=== PATIENT | male | born 1980 | race Caucasian/White ===

== ENCOUNTER 2019-08-16 11:42 | Inpatient (IN) | payer OTHER ==
[2019-08-16 13:57] LABS: EOS % 4.1 % (0-4.5); HEMATOCRIT 40.3 % (35.4-49); HEMOGLOBIN 13.3 GM/dL (11.7-16.9); LYMPH % 32.2 % (8-40); MCH 30.5 pg (25.7-33.7); MCHC 33.1 g/dl (32.0-35.9); MEAN CELL VOLUME 92.1 fl (80-96); MEAN PLT VOLUME 9.4 fl (7.5-11.1); MONO % 19.8 % (3.8-10.2); NEUT % 43.9 % (42.8-82.8); PLATELET COUNT 230 K/MM3 (134-434); RBC 4.37 M/mm3 (4.00-5.60); RDW 14.4 % (11.9-15.9); WHITE BLOOD COUNT 4.8 K/mm3 (4.0-10.0)
[2019-08-16 14:38] LABS: ALBUMIN 3.3 g/dl (3.4-5.0); ALK PHOS 73 U/L (45-117); ANION GAP 4 MMOL/L (8-16); BILIRUBIN,TOTAL 0.3 mg/dL (0.2-1); BLOOD UREA NITROGEN 14.4 mg/dL (7-18); CALCIUM 8.5 mg/dL (8.5-10.1); CHLORIDE 105 mmol/L (98-107); CO2 28 mmol/L (21-32); CREATININE 0.8 mg/dL (0.55-1.3); GLUCOSE,RANDOM 99 mg/dL (74-106); POTASSIUM 4.9 mmol/L (3.5-5.1); SGOT/AST 176 U/L (15-37); SGPT/ALT 211 U/L (13-61); SODIUM 137 mmol/L (136-145); TOT PROT 7.8 g/dl (6.4-8.2)
[2019-08-16 15:08] LABS: ERYTHROCYTE SEDIMENTATION RATE 16 mm/hr (0-10)
[2019-08-16 15:49] LABS: URINE APPEARANCE CLEAR; URINE BILIRUBIN NEGATIVE (NEGATIVE); URINE COLOR YELLOW; URINE GLUCOSE (UA) NEGATIVE (NEGATIVE); URINE KETONE NEGATIVE (NEGATIVE); URINE LEUK ESTERASE NEGATIVE (NEGATIVE); URINE NITRITE NEGATIVE (NEGATIVE); URINE PROTEIN NEGATIVE (NEGATIVE)
[2019-08-16] MEDS ORDERED: CEFTRIAXONE 1,000 MG in DEXTROSE 5%-WATER - 50 ML IVPB ONE (15:54)
[2019-08-16] MEDS ORDERED: VANCOMYCIN HCL 1,250 MG in DEXTROSE 5%-WATER - 250 ML IVPB ONE (15:54)
--- NOTE | 2019-08-16 16:04 | PDOC ---
Documentation entered by Kandace Carpio SCRIBE, acting as scribe for Deshawn Christopher MD. Deshawn Christopher MD: This documentation has been prepared by the Shirin venegas Adrianna, SCRIBE, under my direction and personally reviewed by me in its entirety. I confirm that the documentation accurately reflects all work, treatment, procedures, and medical decision making performed by me. History of Present Illness - General Chief Complaint: Chest Pain Stated Complaint: IRREGULAR HEART BEAT Time Seen by Provider: 08/16/19 12:07 - History of Present Illness Initial Comments: The patient is a 39 year old male, with a significant PMH of polysubstance abuse (heroin, cocaine, fentanyl- currently on methadone program), Hep C, and asthma, who presents to the ED from [facility] to rule out endocarditis. Patient notes he was checking into detox, and upon evaluation he was found to have a murmur so he was sent to the ED for further evaluation. He endorses a ESPARZA and left wrist drop, noting his entire hand feels paralyzed since he woke up at 5 am this morning. Patient also notes he has been experiencing fever, chills, and left upper back pain for the past 3-4 days. Off note, he was seen at [facility] on 08/09 where he was diagnosed with pneumonia and was told he had a lung nodule. Allergies: ciprofloxacin, ketorolac, penicillins, sulfa, trimethoprim Surgical History: None reported Social History: Polysubstance abuse (heroin, cocaine, fentanyl- currently on methadone program, last used yesterday). Everyday smoker. Daily EtOH use. PCP: Does not have one (is homeless) Past History - Past Medical History Allergies/Adverse Reactions: Allergies Allergy/AdvReac Type Severity Reaction Status Date / Time ciprofloxacin [From Cipro] Allergy Verified 08/16/19 12:06 ketorolac [From Toradol] Allergy Verified 08/16/19 12:06 Penicillins Allergy Verified 08/16/19 12:06 Sulfa (Sulfonamide Allergy Verified 08/16/19 12:06 Antibiotics) sulfamethoxazole Allergy Verified 08/16/19 12:06 [From Bactrim] trimethoprim [From Bactrim] Allergy Verified 08/16/19 12:06 Home Medications: Ambulatory Orders Methadone [Dolophine -] 50 mg PO DAILY 08/16/19 Asthma: Yes COPD: No GI Disorders: Yes (hep C) Other medical history: on methadone program - Psycho Social/Smoking Cessation Hx Smoking History: Current every day smoker Have you smoked in the past 12 months: Yes Number of Cigarettes Smoked Daily: 20 Information on smoking cessation initiated: No Hx Alcohol Use: Yes Drug/Substance Use Hx: Yes (heroin cocaine) Review of Systems - Review of Systems Comments:: CONSTITUTIONAL: +fever. +chills. No fatigue EYES: No visual changes ENT: No ear pain, no sore throat CARDIOVASCULAR: +murmur. RESPIRATORY: No cough, no SOB GI: No abdominal pain, no nausea, no vomiting, no constipation, no diarrhea GENITOURINARY: No dysuria, no frequency, no hematuria MUSKULOSKELETAL: +left wrist drop. +left upper back pain. No joint pain, no myalgias SKIN: No rash NEURO: +ESPARZA. *Physical Exam - Vital Signs Last Vital Signs Temp Pulse Resp BP Pulse Ox 98.2 F 61 18 115/53 L 97 08/16/19 16:02 08/16/19 16:02 08/16/19 16:02 08/16/19 16:02 08/16/19 16:02 - Physical Exam CONSTITUTIONAL: Well-appearing; well-nourished; in no apparent distress HEAD: Normocephalic; atraumatic EYES: PERRL; EOM intact ENMT: External appears normal; normal oropharynx NECK: Supple; non-tender; no cervical lymphadenopathy CARD: +grade 3 holosystolic murmur most prominent at the right parasternal border and the 2nd intercostal space. RESP: Normal chest excursion with respiration; breath sounds clear and equal bilaterally; no wheezes, rhonchi, or rales ABD: Soft, non-distended; non-tender; no palpable organomegaly, no palpable hernias EXT: Normal ROM in all four extremities; non-tender to palpation; distal pulses intact SKIN: +Multiple punctures and tract wounds of the bilateral upper and lower extremities. Warm, dry, no rash NEURO: +left wrist drop. No focal neurological deficiencies. Heart Score/ECG Review - ECG Impressions Comment:: EKG performed at 11:51 on 08/16/2019 demonstrates rate of 59bpm, sinus bradycardia with sinus arrhythmia. Cannot rule out anterior infarct, age undetermined. ED Treatment Course - LABORATORY CBC & Chemistry Diagram: 08/16/19 13:20 08/16/19 13:20 - ADDITIONAL ORDERS Additional order review: Laboratory Results 08/16/19 08/16/19 14:15 13:20 Sodium 137 Potassium 4.9 Chloride 105 Carbon Dioxide 28 Anion Gap 4 L BUN 14.4 Creatinine 0.8 Est GFR (CKD-EPI)AfAm 129.51 Est GFR (CKD-EPI)NonAf 111.74 Random Glucose 99 Calcium 8.5 Total Bilirubin 0.3 AST 176 H ALT 211 H Alkaline Phosphatase 73 Creatine Kinase 230 Creatine Kinase Index 1.7 CK-MB (CK-2) 4.1 H Troponin I < 0.02 C-Reactive Protein 0.3 Total Protein 7.8 Albumin 3.3 L Urine Color Yellow Urine Appearance Clear Urine pH 7.0 Ur Specific [place] 1.015 Urine Protein Negative Urine Glucose (UA) Negative Urine Ketones Negative Urine Blood Negative Urine Nitrite Negative Urine Bilirubin Negative Urine Urobilinogen 1.0 Ur Leukocyte Esterase Negative 08/16/19 13:20 RBC 4.37 MCV 92.1 MCHC 33.1 RDW 14.4 MPV 9.4 Neutrophils % 43.9 Lymphocytes % 32.2 Monocytes % 19.8 H Eosinophils % 4.1 Basophils % 0.0 - RADIOLOGY Radiology Studies Ordered: Category Date Time Status HEAD CT WITHOUT CONTRAST [CT] Stat CT Scan 08/16/19 12:30 Completed CHEST PA & LAT [RAD] Stat Radiology 08/16/19 12:30 Taken Medical Decision Making - Medical Decision Making 08/16/19 16:02 Patient is a 39-year-old male with history of polysubstance abuse, IVDA, who presents from [facility] for fever, chills, left-sided pleuritic chest pain and a loud murmur. In the ER, patient is afebrile and nontoxic-appearing. Physical exam reveals 3/6 holosystolic murmur as well as multiple track polanco to the upper extremities bilaterally. I suspect infectious endocarditis. Blood cultures have been obtained. Will administer IV ceftriaxone and vancomycin. Will obtain 2D echo to evaluate for vegetations. Patient also presents with left wrist drop which I suspect is related to the radial nerve palsy. However, CT of head showed no evidence of acute pathology. CT was performed without contrast although I do not suspect intracerebral abscess. Discharge - Discharge Information Problems reviewed: Yes Clinical Impression/Diagnosis: Polysubstance abuse Endocarditis Qualifiers: Endocarditis type: infective Infective endocarditis organism: unspecified organism Chronicity: acute Qualified Code(s): I33.0 - Acute and subacute infective endocarditis Condition: Fair - Admission Yes - Follow up/Referral - Patient Discharge Instructions - Post Discharge Activity
--- NOTE | 2019-08-16 16:20 | ECHO ---
Name: HESHAM RANGEL Exam:Adult Echocardiogram Study Date: 08/16/2019 03:01 PM Age: 39 yrs Reason For Study: R/O Endocarditis Height: 67 in Weight: 155 lb BSA: 1.8 m2 MMode/2D Measurements & Calculations IVSd: 0.96 cm Ao root diam: 3.1 cm LVIDd: 4.3 cm LA dimension: 3.3 cm LVIDs: 2.8 cm ACS: 1.7 cm LVPWd: 0.88 cm EDV(Teich): 83.8 ml LVOT diam: 2.0 cm ESV(Teich): 30.9 ml LAV (MOD-bp): 75.0 ml TAPSE: 2.6 cm RV S Jose Alberto: 12.3 cm/sec Doppler Measurements & Calculations MV E max jose alberto: 95.3 cm/sec Ao V2 max: 122.0 cm/sec MV A max jose alberto: 47.9 cm/sec Ao max P.9 mmHg MV E/A: 2.0 Ao V2 mean: 85.1 cm/sec MV dec time: 0.28 sec Ao mean P.2 mmHg Ao V2 VTI: 27.9 cm SUKH(I,D): 2.4 cm2 SUKH(V,D): 2.6 cm2 LV V1 max P.3 mmHg MR max jose alberto: 445.8 cm/sec LV V1 mean P.0 mmHg MR max P.5 mmHg LV V1 max: 103.2 cm/sec LV V1 mean: 65.7 cm/sec LV V1 VTI: 22.4 cm SV(LVOT): 68.3 ml TR max jose alberto: 280.7 cm/sec TR max P.5 mmHg PA V2 max: 76.0 cm/sec Med Peak E' Jose Alberto: 7.0 cm/sec PA max P.3 mmHg Med E/e': 13.6 PA acc slope: 376.1 cm/sec2 Lat Peak E' Jose Alberto: 13.4 cm/sec PA acc time: 0.14 sec Lat E/e': 7.1 PA pr(Accel): 14.0 mmHg Pulm Sys Jose Alberto: 50.8 cm/sec Pulm Rush Jose Alberto: 44.4 cm/sec Pulm S/D: 1.1 Procedure A two-dimensional transthoracic echocardiogram with color flow and Doppler was performed. The patient was in normal sinus rhythm during the exam. Left Ventricle The left ventricle is normal in size. Left ventricular systolic function is normal. Ejection Fraction = 60- 65%. The transmitral spectral Doppler flow pattern is normal for age. Right Ventricle The right ventricle is normal size. The right ventricular systolic function is normal. Atria Normal left and right atrial size and function. Mitral Valve The mitral valve is normal. There is no vegetation seen on the mitral valve. There is mild mitral regurgitation. Tricuspid Valve The tricuspid valve is normal. There is no tricuspid valve vegetation. There is mild tricuspid regurg itation. There was insufficient TR detected to calculate RV systolic pressure. Aortic Valve The aortic valve is normal in structure and function. The aortic valve is trileaflet. There is no aor tic valvular vegetation. Mild aortic regurgitation. Pulmonic Valve The pulmonic valve is not well visualized. Cannot rule out a pulmonic valve vegetation. Trace pulmoni c valvular regurgitation. Great Vessels The aortic root is normal size. Pericardium/Pleura There is no pericardial effusion. Interpretation Summary Left ventricular systolic function is normal. The right ventricular systolic function is normal. The mitral valve is normal. There is mild mitral regurgitation. The tricuspid valve is normal. There is mild tricuspid regurgitation. The aortic valve is normal in structure and function. Mild aortic regurgitation. The pulmonic valve is not well visualized. Cannot rule out a pulmonic valve vegetation. Trace pulmonic valvular regurgitation. There is no pericardial effusion. MD Demetrio Amezquita 08/16/2019 04:19 PM
--- NOTE | 2019-08-16 16:34 | EKG ---
Test Reason : Blood Pressure : / mmHG Vent. Rate : 059 BPM Atrial Rate : 059 BPM P-R Int : 160 ms QRS Dur : 098 ms QT Int : 442 ms P-R-T Axes : 072 056 050 degrees QTc Int : 437 ms SINUS BRADYCARDIA WITH SINUS ARRHYTHMIA CANNOT RULE OUT ANTERIOR INFARCT , AGE UNDETERMINED ABNORMAL ECG Confirmed by MD BRANDYN, RADHA ([id number]) on 08/16/2019 4:33:53 PM Referred By: Confirmed By:RADHA AHUMADA MD
[2019-08-16] MEDS ORDERED: CEFTRIAXONE 1 GM/50 ML BAG ONE (16:45)
--- NOTE | 2019-08-16 17:40 | HP ---
CHIEF COMPLAINT: weakness PCP:None HISTORY OF PRESENT ILLNESS: Patient is a 39 year old male with past medical history of polysubstance abuse (injects heroin, cocaine, fentanyl), Hep C, and asthma, was brought in from [facility] for evaluation of heart murmur and to rule out endocarditis. Patient reports experiencing fevers and chills. He was recently discharged from [facility] where he was diagnosed with pneumonia, received IV antibiotics for about 5 days and discharged with PO antibiotics to which patient did not take. He also reports that he was found to have a lung nodule during that admission. Patient reports feeling weak and tired, but denies any cough, colds, nausea, vomiting, chest pain, SOB, abdominal pain, diarrhea, urinary symptoms. Today, he was seen in [facility] for detox, where he was noted to have a heart murmur and was subsequently brought to the ED for further evaluation. ER course was notable for: (1) (2) (3) Recent Travel:denies PAST MEDICAL HISTORY: Polysubstance abuse Hepatitis C (untreated) Asthma PAST SURGICAL HISTORY: none Social History: Smokin/2 ppd >10 years Alcohol:occasional etoh use Drugs: Injects cocaine, heroin and fentanyl daily. patient reports being homeless Allergies ciprofloxacin [From Cipro] Allergy (Verified 08/16/19 12:06) ketorolac [From Toradol] Allergy (Verified 08/16/19 12:06) Penicillins Allergy (Verified 08/16/19 12:06) Sulfa (Sulfonamide Antibiotics) Allergy (Verified 08/16/19 12:06) sulfamethoxazole [From Bactrim] Allergy (Verified 08/16/19 12:06) trimethoprim [From Bactrim] Allergy (Verified 08/16/19 12:06) HOME MEDICATIONS: Home Medications Medication Instructions Recorded Methadone [Dolophine -] 50 mg PO DAILY 08/16/19 REVIEW OF SYSTEMS CONSTITUTIONAL: fever, chills, generalized weakness Absent: diaphoresis, malaise, loss of appetite, weight change HEENT: Absent: rhinorrhea, nasal congestion, throat pain, throat swelling, difficulty swallowing, mouth swelling, ear pain, eye pain, visual changes CARDIOVASCULAR: Absent: chest pain, syncope, palpitations, irregular heart rate, lightheadedness, peripheral edema RESPIRATORY: Absent: cough, shortness of breath, dyspnea with exertion, orthopnea, wheezing, stridor, hemoptysis GASTROINTESTINAL: Absent: abdominal pain, abdominal distension, nausea, vomiting, diarrhea, constipation, melena, hematochezia GENITOURINARY: Absent: dysuria, frequency, urgency, hesitancy, hematuria, flank pain, genital pain MUSCULOSKELETAL: Absent: myalgia, arthralgia, joint swelling, back pain, neck pain SKIN: Absent: rash, itching, pallor HEMATOLOGIC/IMMUNOLOGIC: Absent: easy bleeding, easy bruising, lymphadenopathy, frequent infections ENDOCRINE: Absent: unexplained weight gain, unexplained weight loss, heat intolerance, cold intolerance NEUROLOGIC: Absent: headache, focal weakness or paresthesias, dizziness, unsteady gait, seiz ure, mental status changes, bladder or bowel incontinence PSYCHIATRIC: Absent: anxiety, depression, suicidal or homicidal ideation, hallucinations. PHYSICAL EXAMINATION Vital Signs - 24 hr 08/16/19 08/16/19 12:06 16:02 Temperature 98 F 98.2 F Pulse Rate 67 Pulse Rate [ 61 Left Brachial] Respiratory 18 18 Rate Blood Pressure 114/69 Blood Pressure 115/53 L [Left Arm] O2 Sat by Pulse 100 97 Oximetry (%) GENERAL: Awake, alert, and fully oriented, in no acute distress. HEAD: Normal with no signs of trauma. EARS, NOSE, THROAT: Moist mucous membranes. NECK: Normal range of motion LUNGS: Breath sounds equal, clear to auscultation bilaterally. HEART: Regular rate and rhythm, normal S1 and S2 ABDOMEN: Soft, nontender, not distended, normoactive bowel sounds MUSCULOSKELETAL: Normal range of motion at all joints. UPPER EXTREMITIES: 2+ pulses, warm, well-perfused. +multiple track polanco bilaterally LOWER EXTREMITIES: 2+ pulses, warm, well-perfused. No peripheral edema. NEUROLOGICAL: Cranial nerves II-XII intact. Normal speech. Normal gait. PSYCHIATRIC: Cooperative. Good eye contact. Appropriate mood and affect. SKIN: Warm, dry, normal turgor Laboratory Results - last 24 hr 08/16/19 08/16/19 08/16/19 13:20 13:20 14:15 WBC 4.8 RBC 4.37 Hgb 13.3 Hct 40.3 MCV 92.1 MCH 30.5 MCHC 33.1 RDW 14.4 Plt Count 230 MPV 9.4 Absolute Neuts (auto) 2.1 Neutrophils % 43.9 Lymphocytes % 32.2 Monocytes % 19.8 H Eosinophils % 4.1 Basophils % 0.0 Nucleated RBC % 0 ESR 16 H Sodium 137 Potassium 4.9 Chloride 105 Carbon Dioxide 28 Anion Gap 4 L BUN 14.4 Creatinine 0.8 Est GFR (CKD-EPI)AfAm 129.51 Est GFR (CKD-EPI)NonAf 111.74 Random Glucose 99 Calcium 8.5 Total Bilirubin 0.3 AST 176 H ALT 211 H Alkaline Phosphatase 73 Creatine Kinase 230 Creatine Kinase Index 1.7 CK-MB (CK-2) 4.1 H Troponin I < 0.02 C-Reactive Protein 0.3 Total Protein 7.8 Albumin 3.3 L Urine Color Yellow Urine Appearance Clear Urine pH 7.0 Ur Specific [place] 1.015 Urine Protein Negative Urine Glucose (UA) Negative Urine Ketones Negative Urine Blood Negative Urine Nitrite Negative Urine Bilirubin Negative Urine Urobilinogen 1.0 Ur Leukocyte Esterase Negative ASSESSMENT/PLAN: Patient is a 39 year old male with past medical history of polysubstance abuse (injects heroin, cocaine, fentanyl), Hep C, and asthma, was brought in from [facility] for evaluation of heart murmur and to rule out endocarditis. #Polysubstance abuse, r/o endocarditis -echo done, cannot rule out pulmonic valve vegetations -blood cultures pending -will continue IV vanc and Ceftriaxone for now -ID consulted. -neurochecks -need med reconciliation, Methadone at [facility] ([phone]) -consulted [employer] specialist #Transaminitis -may be 2/2 hepatitis, no baseline LFTs -will order RUQ US -repeat hepatitis panel #FEN -Not on any standing fluids -Electrolytes wnl, routine bmp monitoring -REgular diet #Prophylaxis -Continue Lovenox 40mg sq daily #Disposition -full code -admit to med surg Visit type - Emergency Visit Emergency Visit: Yes ED Registration Date: 08/16/19 Care time: The patient presented to the Emergency Department on the above date and was hospitalized for further evaluation of their emergent condition. - New Patient This patient is new to me today: Yes Date on this admission: 08/16/19 - Critical Care Critical Care patient: No ATTENDING PHYSICIAN STATEMENT I saw and evaluated the patient. I reviewed the resident's note and discussed the case with the resident. I agree with the resident's findings and plan as documented. SUBJECTIVE: OBJECTIVE: ASSESSMENT AND PLAN:
[2019-08-16] MEDS: SODIUM CHLORIDE 1,000 ML IV SCH (18:40)
--- NOTE | 2019-08-16 20:16 | PN ---
Teaching Attending Note Name of Resident: Lyn Lindsey ATTENDING PHYSICIAN STATEMENT I saw and evaluated the patient. I reviewed the resident's note and discussed the case with the resident. I agree with the resident's findings and plan as documented. SUBJECTIVE: The patient is a 39 year old male, with a significant PMH of polysubstance abuse (heroin, cocaine, fentanyl- currently on methadone program), Hep C, and asthma, who presents to the ED from [facility] to rule out endocarditis. Patient notes he was checking into detox, and upon evaluation he was found to have a murmur so he was sent to the ED for further evaluation. He endorses a ESPARZA and left wrist drop, noting his entire hand feels paralyzed since he woke up at 5 am this morning. Patient also notes he has been experiencing fever, chills, and left upper back pain for the past 3-4 days. Off note, he was seen at [facility] on 08/09 where he was diagnosed with pneumonia and was told he had a lung nodule.he satyed there for the 5 days and recieved abx, and stipped taking after 5 days on his own, he took last heroin yesterday, OBJECTIVE: OE appears anxious , and alert awake oriented, vss neck supple no jvd cvs s1/s2/0 chest ctab abd benign ext no c/c/e neuro alert awake and ms 5/5 RUE and RLE, and 5/5 RU and RLE, xcept , L wrist drop ASSESSMENT AND PLAN: Patient is a 39 year old male with past medical history of polysubstance abuse ( injects heroin, cocaine, fentanyl), Hep C, and asthma, was brought in from [facility] for evaluation of heart murmur and to rule out endocarditis. #Polysubstance abuse, r/o endocarditis -echo done, cannot rule out pulmonic valve vegetations -blood cultures pending -will continue IV vanc and Ceftriaxone for now -ID consulted. get cardioolgy , might need CALLY, -neurochecks -need med reconciliation, Methadone at [facility] ([phone]) -consulted medical review specialist h/o hep c, untreated, -may be 2/2 hepatitis, no baseline LFTs -will order RUQ US -repeat hepatitis panel. pt needs hep c treatment as an outpt, L wrist drop, likely from the radial palsy, will get neuro eval, and also will see the PT, ct head neg,
[2019-08-16] MEDS ORDERED: cloNIDine HCL 0.1 MG TABLET PO PRN (21:01)
[2019-08-16] MEDS ORDERED: METHADONE HCL 10 MG TABLET (FOR DETOX USE ONLY) PO ONE (21:01)
[2019-08-16] MEDS ORDERED: clonazePAM 0.5 MG TABLET PO PRN (21:01)
--- NOTE | 2019-08-16 21:09 | CONSULT ---
Consult Detox [facility] Reason for Current Admission/Consult: Patient sent to [facility] for new onset heart murmur in light of active IV drug use Referred by:: Lyn hood - History History of Present Illness: Patient has mutli substance use disorder and was on a methadone program but was being detoxed from there. A verification of last date and dose was not done at [facility] and since he was transferred to [facility] for rule out subacute endocarditis, orders for methadone detox was not written. - History Source History Provided By: Patient, Medical Record Limitations to Obtaining History: No Limitations - Alcohol/Substance Use Hx Alcohol Use: Yes - Current Drug/Alcohol Use Heroin Route: Injection Frequency: Daily Amount used: 1 bundle Age of first use: 15 Date of Last Use: 08/16/19 Cocaine Route: Injection Frequency: Daily Amount used: 5 bags Age of first use: 19 Date of Last Use: 08/15/19 - Past Medical History Pulmonary: Yes: Asthma Infectious Disease: Yes: Other (HCV) - Past Surgical History Past Surgical History: Yes: None COWS - Scale Resting Pulse: 1= AR 81-100 Sweatin= Beads of Sweat on Face Restless Observation: 1= Difficult to Sit Still Pupil Size: 1= Pupils >than Normal Bone or Joint Aches: 2= Severe Diffuse Aches Runny Nose/ Eye Tearin= Nasal Congestion GI Upset > 30mins: 1= Stomach Cramp Tremor Observation: 1= Tremor [place], Not Seen Yawning Observation: 1= 1-2x During Session Anxiety or Irritability: 1=Feels Anxious/Irritable Goose Flesh Skin: 3=Piloerection COWS Score: 16 Assessment Plan - Plan Plan: 1. Opioid Dependence: Start methadone detox protocol. As ordered. Attempt to confirm last date and dose of methadone at [facility] tomorrow. Re-consult addiction medicine for further changes. Comfort meds also started (ativan prn and catapres prn) If patient's condition is medically stabilized and endocarditis is ruled out or treatment complete, patient can transfer back for rehab. Dr. Bird - Medication Detox Regimen/Protocol: Methadone
[2019-08-16] MEDS ORDERED: METHADONE HCL 10 MG TABLET PO ONE (23:30)
[2019-08-17 01:49] LABS: URINE APPEARANCE CLEAR; URINE BILIRUBIN NEGATIVE (NEGATIVE); URINE COLOR YELLOW; URINE GLUCOSE (UA) NEGATIVE (NEGATIVE); URINE KETONE NEGATIVE (NEGATIVE); URINE LEUK ESTERASE NEGATIVE (NEGATIVE); URINE NITRITE NEGATIVE (NEGATIVE); URINE PROTEIN NEGATIVE (NEGATIVE)
[2019-08-17 05:12] VITALS: BMI 25.2
[2019-08-17 08:09] LABS: BASO % 0.7 % (0-2.0); EOS % 6.1 % (0-4.5); HEMATOCRIT 38.8 % (35.4-49); HEMOGLOBIN 12.8 GM/dL (11.7-16.9); LYMPH % 38.1 % (8-40); MCH 30.4 pg (25.7-33.7); MONO % 14.6 % (3.8-10.2); NEUT % 40.5 % (42.8-82.8); PLATELET COUNT 201 K/MM3 (134-434); RBC 4.21 M/mm3 (4.00-5.60); RDW 14.7 % (11.9-15.9); WHITE BLOOD COUNT 4.5 K/mm3 (4.0-10.0)
--- NOTE | 2019-08-17 08:27 | PN ---
Progress Note, Physician History of Present Illness: Patient is a 39 year old male with past medical history of polysubstance abuse ( injects heroin, cocaine, fentanyl), Hep C, and asthma, was brought in from [facility] for evaluation of heart murmur and to rule out endocarditis. - Current Medication List Current Medications: Active Medications Clonazepam (Klonopin -) 0.5 mg PO Q6H PRN PRN Reason: Withdrawal Symptoms Clonidine (Catapres -) 0.1 mg PO Q4H PRN PRN Reason: Withdrawal Symptoms Stop: 08/18/19 23:59 Enoxaparin Sodium (Lovenox -) 40 mg SQ DAILY TATUM Sodium Chloride (Normal Saline -) 1,000 mls @ 100 mls/hr IV ASDIR TATUM Last Admin: 08/16/19 18:40 Dose: 100 mls/hr Ceftriaxone Sodium 1 gm/ (Dextrose) 50 mls @ 100 mls/hr IVPB DAILY TATUM Methadone HCl 20 mg/ Methadone (HCl 5 mg) 25 mg PO ONCE ONE Stop: 08/17/19 10:01 Methadone HCl 10 mg/ Methadone (HCl 5 mg) 15 mg PO ONCE ONE Stop: 08/19/19 10:01 Methadone HCl (Dolophine -) 5 mg PO ONCE@0600 ONE Stop: 08/21/19 06:01 Methadone HCl (Dolophine -) 10 mg PO ONCE ONE Stop: 08/20/19 10:01 Methadone HCl (Dolophine -) 20 mg PO ONCE ONE Stop: 08/18/19 10:01 Vancomycin HCl (Vancomycin (Pre-Docked)) 1,000 mg IVPB DAILY@1500 TATUM; Protocol - Objective Vital Signs: Vital Signs Temperature 98.2 F 08/17/19 06:00 Pulse Rate 59 L 08/17/19 06:00 Respiratory Rate 18 08/17/19 06:00 Blood Pressure 107/63 08/17/19 06:00 O2 Sat by Pulse Oximetry (%) 99 08/16/19 22:00 Labs: CBC, BMP 08/17/19 07:02 Problem List - Problems (1) HCV (hepatitis C virus) Code(s): B19.20 - UNSPECIFIED VIRAL HEPATITIS C WITHOUT HEPATIC COMA (2) Asthma Code(s): J45.909 - UNSPECIFIED ASTHMA, UNCOMPLICATED (3) Prophylactic measure Code(s): Z29.9 - ENCOUNTER FOR PROPHYLACTIC MEASURES, UNSPECIFIED (4) Transaminitis Code(s): R74.0 - NONSPEC ELEV OF LEVELS OF TRANSAMNS & LACTIC ACID DEHYDRGNSE (5) Polysubstance abuse Code(s): F19.10 - OTHER PSYCHOACTIVE SUBSTANCE ABUSE, UNCOMPLICATED
[2019-08-17 08:34] LABS: INR 1.08 (0.83-1.09); PROTHROMBIN TIME (PATIENT) 12.7 SEC (9.7-13.0)
[2019-08-17 08:37] LABS: ACTIVATED PTT 32.8 SECONDS (25.2-36.5)
[2019-08-17 09:12] LABS: BILIRUBIN,TOTAL 0.1 mg/dL (0.2-1); BLOOD UREA NITROGEN 18.5 mg/dL (7-18); CALCIUM 8.5 mg/dL (8.5-10.1); CREATININE 0.9 mg/dL (0.55-1.3); MAGNESIUM 1.9 mg/dL (1.8-2.4); PHOSPHOROUS 4.2 mg/dL (2.5-4.9); TOT PROT 6.8 g/dl (6.4-8.2)
[2019-08-17] MEDS ORDERED: DEXTROSE 5%-WATER - 50 ML IVPB ONE (09:45)
[2019-08-17] MEDS ORDERED: cefTRIAXone SODIUM 1 GM VIAL ONE (09:45)
[2019-08-17] MEDS ORDERED: PT OWN MED DRAWER 7, Y5N ONE (09:54)
[2019-08-17] MEDS ORDERED: PNEUMOC 13-VAL CONJ-DIP CRM/PF 0.5 ML DISP.SYRIN IM ONE (10:00)
[2019-08-17] MEDS ORDERED: METHADONE 20 MG, METHADONE 5 MG PO ONE (10:00)
[2019-08-17] MEDS ORDERED: METHADONE (DETOX) 20 MG, METHADONE (DETOX) 5 MG PO ONE (10:00)
[2019-08-17] MEDS ORDERED: FLU VACCINE QUAD 60 MCG/0.5 ML (MDV 19-20) IM ONE (10:00)
[2019-08-17] MEDS ORDERED: CEFTRIAXONE 1 GM in DEXTROSE 5%-WATER - 50 ML IVPB SCH (10:00)
[2019-08-17] MEDS: ENOXAPARIN NA (PORCINE) 40 MG/0.4 ML DISP.SYRIN SQ SCH (10:00)
[2019-08-17] MEDS ORDERED: METHADONE HCL 10 MG TABLET ONE (10:14)
[2019-08-17] MEDS ORDERED: METHADONE HCL 5 MG TABLET ONE (10:14)
[2019-08-17 11:06] LABS: PHENCYCLIDINE,URINE NEGATIVE ng/ml (CUTOFF=25); URINE AMPHETAMINES NEGATIVE ng/ml (CUTOFF=500); URINE BARBITURATES NEGATIVE ng/ml (CUTOFF=200); URINE BENZODIAZEPINES NEGATIVE ng/ml (CUTOFF=200)
[2019-08-17 11:10] LABS: COCAINE, UR POSITIVE ng/ml (CUTOFF=300); METHADONE, UR POSITIVE ng/ml (CUTOFF=300); OPIATES, URI POSITIVE ng/ml (CUTOFF=300)
[2019-08-17] MEDS ORDERED: ACETAMINOPHEN 325 MG TABLET (FP) PO PRN (12:19)
--- NOTE | 2019-08-17 14:02 | PN ---
Progress Note (short form) - Note Progress Note: ID CONSULT DICTATED AWAIT BC OBSERVE OFF ANTIBIOTICS
--- NOTE | 2019-08-17 14:58 | CON.CARD ---
Consult Consult Specialty:: Cardiology Referred by:: Medicine Reason for Consultation:: murmur - History of Present Illness Chief Complaint: fatigue, dyspnea History of Present Illness: 39M h/o IV drug abuse, hep C, asthma presents from [facility] with murmur. He recently was diagnsoed with PNA, received IV abx at another hospital and didn't continue PO abx as he was still using drugs. [place] weak, tired and was seen in [facility] day prior to admission for detox, sent to ER for heart murmur. Complains of chest pain in L side of chest extending to L abdomen which is worse with palpation, moving L arm, also has weakness in L arm for the last few days, tiredness. No palps, dizziness, edema, orthopnea. Has been using IV drugs for many years, no hx endocarditis. - Past Medical History Pulmonary: Yes: Asthma Infectious Disease: Yes: Other (HCV) - Past Surgical History Past Surgical History: Yes: None - Alcohol/Substance Use Hx Alcohol Use: Yes - Smoking History Smoking history: Current every day smoker Have you smoked in the past 12 months: Yes Aproximately how many cigarettes per day: 20 Home Medications - Allergies Allergies/Adverse Reactions: Allergies Allergy/AdvReac Type Severity Reaction Status Date / Time ciprofloxacin [From Cipro] Allergy Verified 08/16/19 12:06 ketorolac [From Toradol] Allergy Verified 08/16/19 12:06 Penicillins Allergy Verified 08/16/19 12:06 Sulfa (Sulfonamide Allergy Verified 08/16/19 12:06 Antibiotics) sulfamethoxazole Allergy Verified 08/16/19 12:06 [From Bactrim] trimethoprim [From Bactrim] Allergy Verified 08/16/19 12:06 - Home Medications Home Medications: Ambulatory Orders Methadone [Dolophine -] 50 mg PO DAILY 08/16/19 Family Medical History Family History: Unremarkable Review of Systems - Review of Systems Constitutional: reports: No Symptoms Eyes: reports: No Symptoms HENT: reports: No Symptoms Neck: reports: No Symptoms Cardiovascular: reports: No Symptoms Respiratory: reports: No Symptoms Gastrointestinal: reports: No Symptoms Genitourinary: reports: No Symptoms Musculoskeletal: reports: No Symptoms Integumentary: reports: No Symptoms Neurological: reports: No Symptoms Endocrine: reports: No Symptoms Hematology/Lymphatic: reports: No Symptoms Psychiatric: reports: No Symptoms Vital Signs: Vital Signs Temperature 98.5 F 08/17/19 11:51 Pulse Rate 63 08/17/19 11:51 Respiratory Rate 18 08/17/19 11:51 Blood Pressure 114/72 08/17/19 11:51 O2 Sat by Pulse Oximetry (%) 98 08/17/19 09:00 Constitutional: Yes: No Distress, Calm Eyes: Yes: Conjunctiva Clear, EOM Intact HENT: Yes: Atraumatic, Normocephalic Neck: Yes: Supple, Trachea Midline Respiratory: Yes: Regular, CTA Bilaterally Gastrointestinal: Yes: Normal Bowel Sounds, Soft Cardiovascular: Yes: Regular Rate and Rhythm JVD: No Heart Sounds: Yes: S1, S2 Murmur: No: Systolic Murmur Extremities: No: Cold Edema: No Peripheral Pulses WNL: No Integumentary: No: Jaundice Neurological: Yes: Alert, Oriented Psychiatric: No: Agitated - Other Data Labs, Other Data: CBC, BMP 08/17/19 07:02 08/17/19 07:02 INR, PTT INR 1.08 (0.83-1.09) 08/17/19 07:02 Assessment/Plan EKG: sinus yoly, no ischemic changes Echo 07/2019 nl LV/RV function, mild MR, mild TR, pulmonic valve not well visualized, mild AR murmur, history of IV drug abuse - manage per detox, ID - afebrile, so far bcx negative - murmur not auscultated on exam - echo shows no evidence of endocarditis, however pulmonic valve not well visualized - would defer CALLY at this point as clinical picture less consistent with endocarditis, can consider if blood cx positive chest pain - likely MSK, reproducible with palpation - trop neg x 1, EKG no ischemic changes, less likely ACS - echo unremarkable - defer further cardiac testing at this point hep c - manage per primary asthma - manage per primary
[2019-08-17] MEDS ORDERED: VANCOMYCIN 1 GM in D5W (PRE-DOCKED) 1,000 MG/250 ML IVPB SCH (15:00)
--- NOTE | 2019-08-17 15:01 | CONS ---
INFECTIOUS DISEASE CONSULTATION DATE OF CONSULTATION: DATE OF DICTATION: 08/17/2019 The patient is a 39-year-old male who is evaluated for possible endocarditis. He has a history of active injection drug use. He was admitted to [facility] for detoxification from heroin and cocaine. While there, he was noted to have a heart murmur. He was transferred to [facility] to be admitted to rule out endocarditis. Patient reports a history of active IV drug use. He does not share needles. States he tested HIV in the past; however, consents to be retested. He denies prior history of infectious endocarditis secondary to IV drug use. PAST MEDICAL HISTORY: Positive for polysubstance abuse including heroin and cocaine; history of hepatitis C, untreated; and asthma. ALLERGIES: PENICILLIN, CIPRO, and SULFA. SOCIAL HISTORY: Positive for polysubstance abuse. Denies ill contacts. Positive tobacco use. Recent trip to [place] in June 2019. LABORATORY DATA: White count 4.5; neutrophils 40, lymphocytes 38, monocytes 14, eosinophils 6; hematocrit 38.8; platelet count 201. Creatinine 0.9. Total bilirubin 0.1. Alkaline phosphatase 64. AST 137, ALT 179. ESR 16. PHYSICAL EXAMINATION: General: He is not acutely toxic appearing. Vital Signs: Temperature 98.2; blood pressure 107/63; pulse 59, regular; respirations 18 per minute. HEENT: Sclera anicteric. No conjunctival hemorrhages. Neck: Supple. Heart: Sounds S1, S2. No murmur. Lungs: Clear. Abdomen: Soft. No palpable liver or spleen. Extremities: Negative for edema. IMPRESSION: 1. No clinical stigmata of infectious endocarditis. 2. Active injection drug use. 3. Polysubstance abuse. 4. History of hepatitis C, untreated. 5. Elevated liver enzymes. Cultures are pending. Transthoracic echo without gross evidence of valvular vegetation. Would observe off antibiotic therapy. Await cultures. Repeat HIV test. Thank you for the kind referral. ROBERT TYSON M.D. [id number]
[2019-08-17] MEDS: SODIUM CHLORIDE 1,000 ML IV SCH ×2 (15:50→18:03)
[2019-08-18] MEDS: SODIUM CHLORIDE 1,000 ML IV SCH (00:58)
[2019-08-18] MEDS: ENOXAPARIN NA (PORCINE) 40 MG/0.4 ML DISP.SYRIN SQ SCH (09:42)
[2019-08-18] MEDS ORDERED: METHADONE HCL 10 MG TABLET PO ONE (10:00)
[2019-08-18 10:42] VITALS: PULSE 68
--- NOTE | 2019-08-18 14:14 | DS ---
Physical Exam: SUBJECTIVE: Patient seen and examined OBJECTIVE: ruled out for endocarditis, discussed with [facility], patient refusing to go back to [facility] and now wants to go home Vital Signs Period Temp Pulse Resp BP Sys/Rush Pulse Ox Last 24 Hr 97.7 F-98 F 51-68 20-20 102-142/57-66 98-100 PHYSICAL EXAM GENERAL: The patient is awake, alert, and fully oriented, in no acute distress. HEAD: Normal with no signs of trauma. EYES: PERRL, extraocular movements intact, sclera anicteric, conjunctiva clear. ENT: Ears normal, nares patent, oropharynx clear without exudates, moist mucous membranes. NECK: Trachea midline, full range of motion, supple. LUNGS: Breath sounds equal, clear to auscultation bilaterally, no wheezes, no crackles, no accessory muscle use. HEART: Regular rate and rhythm, S1, S2 without murmur, rub or gallop. ABDOMEN: Soft, nontender, nondistended, normoactive bowel sounds, no guarding, no rebound, no hepatosplenomegaly, no masses. EXTREMITIES: left wrist drop, splint ordered NEUROLOGICAL: Cranial nerves II through XII grossly intact. Normal speech, gait not observed. PSYCH: Normal mood, normal affect. SKIN: Warm, dry, normal turgor, no rashes or lesions noted. LABS Laboratory Results - last 24 hr 08/16/19 08/17/19 13:20 07:02 Hep A IgM Ab Confirm Negative Hep Bs Antigen Negative Hep B Core IgM Ab Negative Hepatitis C Ab (EIA) >11.0 H HIV 1&2 Ag/Ab, 4th Gen Non reactive HOSPITAL COURSE: Date of Admission:08/16/19 Date of Discharge: 08/18/19 Minutes to complete discharge: 45 Discharge Summary Problems reviewed: Yes Reason For Visit: ENDOCARDITIS Current Active Problems Asthma (Acute) Endocarditis (Acute) HCV (hepatitis C virus) (Acute) Polysubstance abuse (Acute) Prophylactic measure (Acute) Transaminitis (Acute) Condition: Improved - Instructions Diet, Activity, Other Instructions: Mr. Busch: You will need treatment for your hepatitic C. What is hepatitis C? Hepatitis C is an infection caused by a virus that attackes the liver and leads to inflammation. You will need to start treatment, the treatment is usually for 3 months. We have referred you to a GI specialist. Please call and make an appointment to start treatment. Left wrist drop negative for acute fracture apply splint physical therapy recommended. Thank you for allowing us to care for you Referrals: Dhiraj Doyle MD [Staff Physician] - Lor Rodrigez MD [Staff Physician] - Leland Leach MD [Staff Physician] - Disposition: HOME - Home Medications Comprehensive Discharge Medication List: Ambulatory Orders Methadone [Dolophine -] 50 mg PO DAILY 08/16/19 Enoxaparin [Lovenox -] 40 mg SQ DAILY disp.syrin 08/18/19 cloNIDine HCL [Catapres -] 0.1 mg PO Q4H PRN tablet 08/18/19 This patient is new to me today: No Emergency Visit: Yes ED Registration Date: 08/16/19 Care time: The patient presented to the Emergency Department on the above date and was hospitalized for further evaluation of their emergent condition. Critical Care patient: No - Discharge Referral Referred to [facility] No
--- NOTE | 2019-08-18 14:40 | PN ---
Progress Note (short form) - Note Progress Note: s: no cp sob palps dizzy Current Medications Generic Name Dose Route Start Last Admin Trade Name Freq PRN Reason Stop Dose Admin Acetaminophen 650 mg 08/17/19 12:19 08/17/19 13:46 Tylenol - PO 650 mg Q6H PRN Administration PAIN LEVEL 1-5 Clonazepam 0.5 mg 08/16/19 21:01 Klonopin - PO Q6H PRN Withdrawal Symptoms Clonidine 0.1 mg 08/16/19 21:01 Catapres - PO 08/18/19 23:59 Q4H PRN Withdrawal Symptoms Enoxaparin Sodium 40 mg 08/17/19 10:00 08/18/19 09:42 Lovenox - SQ 40 mg DAILY TATUM Administration Sodium Chloride 1,000 mls @ 100 mls/hr 08/16/19 17:45 08/18/19 00:58 Normal Saline - IV 100 mls/hr ASDIR TATUM Administration Methadone HCl 10 mg/ Methadone 15 mg 08/19/19 10:00 HCl 5 mg PO 08/19/19 10:01 ONCE ONE Methadone HCl 5 mg 08/21/19 06:00 Dolophine - PO 08/21/19 06:01 ONCE@0600 ONE Methadone HCl 10 mg 08/20/19 10:00 Dolophine - PO 08/20/19 10:01 ONCE ONE Vital Signs Period Temp Pulse Resp BP Sys/Rush Pulse Ox Last 24 Hr 97.7 F-98 F 51-68 20-20 102-142/57-66 98-100 Constitutional: Yes: No Distress, Calm Eyes: Yes: Conjunctiva Clear Neck: Yes: Supple, Trachea Midline Respiratory: Yes: Regular, CTA Bilaterally Gastrointestinal: Yes: Normal Bowel Sounds, Soft Cardiovascular: Yes: Regular Rate and Rhythm JVD: No Heart Sounds: Yes: S1, S2 Murmur: No: Systolic Murmur Extremities: No: Cold Edema: No Peripheral Pulses WNL: No Integumentary: No: Jaundice Neurological: Yes: Alert, Oriented Psychiatric: No: Agitated CBC, BMP 08/17/19 07:02 08/17/19 07:02 Assessment/Plan EKG: sinus yoly, no ischemic changes Echo 07/2019 nl LV/RV function, mild MR, mild TR, pulmonic valve not well visualized, mild AR murmur, history of IV drug abuse - manage per detox, ID - afebrile, so far bcx negative - murmur not auscultated on exam - echo shows no evidence of endocarditis, however pulmonic valve not well visualized - would defer CALLY at this point as clinical picture less consistent with endocarditis, can consider if blood cx positive chest pain - likely MSK, reproducible with palpation - trop neg x 1, EKG no ischemic changes, less likely ACS - echo unremarkable - defer further cardiac testing at this point hep c - manage per primary asthma - manage per primary
[2019-08-18 15:23] VITALS: BP 116/69; TEMP 98.2
[2019-08-19] MEDS ORDERED: METHADONE 10 MG, METHADONE 5 MG PO ONE (10:00)
[2019-08-20] MEDS ORDERED: METHADONE HCL 10 MG TABLET PO ONE (10:00)
[2019-08-21] MEDS ORDERED: METHADONE HCL 5 MG TABLET PO ONE (06:00)
== END 2019-08-18 16:41 | disposition home or self-care (01) | DRG 200 ==
LOC: JER 11:42 → JERBED 16:44 → J5S 20:40
PROVIDERS: ADMIT Internal Medicine; ATTEND Nurse Practitioner Family
DX: R01.1 Cardiac murmur, unspecified (principal); F11.20 Opioid dependence, uncomplicated; R07.89 Other chest pain; F14.10 Cocaine abuse, uncomplicated; M21.332 Wrist drop, left wrist; J45.909 Unspecified asthma, uncomplicated; Z88.0 Allergy status to penicillin; F17.210 Nicotine dependence, cigarettes, uncomplicated; R74.0 Nonspecific elevation of levels of transaminase and lactic acid dehydrogenase [LDH]; B19.20 Unspecified viral hepatitis C without hepatic coma
CPT/HCPCS: 36415; 70450-TC; 71046-TC-FY; 73110-TC-LT-FY; 76705-TC; 80053; 80074; 80307; 81003; 82550; 82553; 83735; 84100; 84443; 84484; 85025; 85610; 85651; 85730; 86140; 87040; 87389; 93005; 93010; 93306-TC; 99285-25; J7030